=== PATIENT | male | born 1990 | race African-American/Black ===

== ENCOUNTER 2020-10-17 16:45 | Emergency (ER) | payer BC, SELFPAY ==
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
[2020-10-17 17:02] VITALS: BP 147/92; PULSE 83; RESP 18; TEMP 36.7; O2SAT 100
== END 2020-10-17 18:52 | disposition home or self-care (01) ==
PROVIDERS: Emergency Provider Nurse Practitioner Family
DX: H11.32 Conjunctival hemorrhage, left eye (principal); S01.112A Laceration without foreign body of left eyelid and periocular area, initial encounter; Y08.89XA Assault by other specified means, initial encounter; I10 Essential (primary) hypertension
CPT/HCPCS: 70150; 70160; 99203; G0463

== ENCOUNTER 2020-11-18 13:30 | Emergency (ER) | payer BC, SELFPAY ==
[2020-11-18] VITALS (7 sets, daily range): BP systolic 110–144; BP diastolic 77–91; PULSE 100–105; RESP 14–24; TEMP 36.6; O2SAT 85–100
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
--- NOTE | 2020-11-18 13:32 | ECG_ITS ---
Measurements Intervals [place] Rate: 106 P: 53 MS: 153 QRS: -5 QRSD: 94 T: 41 QT: 314 QTc: 418 Interpretive Statements SINUS TACHYCARDIA ATRIAL PREMATURE COMPLEX DELAYED PRECORDIAL R/S TRANSITION ABNORMAL ECG Electronically Signed On 11-18-2020 13:50:36 CDT by Beau Read D.O.
[2020-11-18 13:59] LABS: Basophils Percent Auto 0.3 % (0.2-1.2); Hematocrit 47.7 % (42.0-52.0); Immature Granulocyte Absolute 0.02 K/mm3 (0.00-0.031); Immature Granulocyte Percent A 0.7 % (0-0.5); Lymphocytes Absolute Auto 0.59 K/mm3 (0.9-3.2); Lymphocytes Percent Auto 19.3 % (18.3-44.2); Mean Corpuscular HGB Conc 31.4 g/dl (32-36); Mean Corpuscular Hemoglobin 26.2 pg (26-34); Mean Corpuscular Volume 83.4 fl (80-100); Mean Platelet Volume 10.3 fl (7.4-10.4); Monocytes Absolute Auto 0.6 K/mm3 (0.1-0.6); Neutrophils Absolute Auto 1.9 K/mm3 (1.3-6.7); Neutrophils Percent Auto 60.7 % (45.5-73.1); Platelet Count Result 190 k/mm3 (150-375); Red Blood Count 5.72 M/mm3 (4.6-6.20); Red Cell Distribution Width 13.6 % (11.5-14.5); White Blood Count 3.1 K/mm3 (4.5-10.0)
[2020-11-18 14:10] LABS: Alanine Aminotransferase 28 U/L (4-50); Albumin Level 4.8 g/dL (3.5-5.1); Alkaline Phosphatase 61 U/L (38-126); Anion Gap 11 mmol/L (8-16); Aspartate Amino Transferase 36 U/L (17-59); Bilirubin,Total 0.4 mg/dL (0.2-1.3); Blood Urea Nitrogen 10 mg/dL (9-20); Calcium 9.6 mg/dL (8.4-10.2); Carbon Dioxide 31 mmol/L (22-30); Chloride 90 mmol/L (98-107); D Dimer 0.39 ug/mL (<0.48); Estimated CRCL calculation 94 ml/min; Estimated Glomerular Filt Rate > 60; Glucose 95 mg/dL (65-110); Potassium 3.7 mmol/L (3.4-5.0); Sodium 132 mmol/L (137-145)
--- NOTE | 2020-11-18 16:32 | ED.SOB ---
HPI - SOB/Dyspnea General Chief Complaint: Shortness of Breath/Dyspnea Stated Complaint: COVID+, c/o SOB Time Seen by Provider: 11/18/20 16:27 History of Present Illness HPI Narrative: Cough congestion, ZAVALA, body aches for the past for days. Positive COVID test today. Taking OTC medications without significant improvement. Related Data Home Medications Medication Instructions Recorded Confirmed lisinopril-hydrochlorothiazide tablet 10/17/20 Allergies Allergy/AdvReac Type Severity Reaction Status Date / Time No Known Allergies Allergy Verified 10/17/20 17:06 Review of Systems Review of Systems: All systems reviewed & are unremarkable except as noted in HPI and below Constitutional: Constitutional: Denies fever(s) Eyes: Eyes: Reports no additional eye complaints ENT: Denies sore throat Cardiovascular: Cardiovascular: Reports no additional cardiovascular complaints Respiratory: Respiratory: Reports chest congestion, Reports cough and Reports dyspnea Gastrointestinal: Gastrointestinal: Denies abdominal pain Neurologic: Reports system reviewed and no additional complaints, except as documented [facility] Past Medical History Medical History (Updated 11/18/20 @ 16:43 by Bruce Michael MD) HTN (hypertension) Social History Social History Gender identity (if verbalized by the patient): Male Exam Const: General: no acute distress and alert Orientation/consciousness: patient oriented x3 HENMT: Head: normal to inspection Eyes: Conjunctivae: conjunctival abnormality left subconjunctival hemorrhage Neck: Neck: normal visual inspection Resp: Effort & Inspection: normal respiratory effort Auscultation: clear to auscultation bilaterally Cardio: Rate: tachycardic Rhythm: regular rhythm GI: Inspection: non-distended GI Palp: Yes Soft to palpation and No Tenderness to palpation present (GI) Skin: General skin exam: normal color Neuro: General: patient oriented x3, moves all extremities, no focal motor deficits and CN's II-XI intact bilaterally Extrem: General: normal to inspection and no edema Course Vital Signs Vital signs: Vital Signs Temperature 36.6 C 11/18/20 13:59 Pulse Rate 105 H 11/18/20 13:59 Respiratory Rate 18 11/18/20 13:59 Blood Pressure 119/82 11/18/20 13:59 Pulse Oximetry 100 11/18/20 13:59 Temperature 36.6 C 11/18/20 13:59 Pulse Rate 105 H 08/13/21 13:59 Respiratory Rate 18 11/18/20 13:59 Blood Pressure 119/82 11/18/20 13:59 Pulse Oximetry 100 11/18/20 13:59 MDM - SOB/Dyspnea Differential Diagnosis Differential diagnosis: Likely other Medical Records Attestation: I reviewed the patient's medical records. Lab Data Attestation: I reviewed the patient's lab results. Result diagrams: 11/18/20 13:43 11/18/20 13:43 Labs: Lab Results 11/18/20 11/18/20 11/18/20 Range/Units 13:43 13:43 13:43 WBC 3.1 L (4.5-10.0) K/mm3 RBC 5.72 (4.6-6.20) M/mm3 Hgb 15.0 (14.0-18.0) g/dL Hct 47.7 (42.0-52.0) % MCV 83.4 (80-100) fl MCH 26.2 (26-34) pg MCHC 31.4 L (32-36) g/dl RDW 13.6 (11.5-14.5) % Plt Count 190 (150-375) k/mm3 MPV 10.3 (7.4-10.4) fl Immature Gran % (Auto) 0.7 H (0-0.5) % Neut % (Auto) 60.7 (45.5-73.1) % Lymph % (Auto) 19.3 (18.3-44.2) % [place] % (Auto) 19.0 H (2.6-8.5) % Eos % (Auto) 0.0 (0-4.4) % Baso % (Auto) 0.3 (0.2-1.2) % Lymph # (Auto) 0.59 L (0.9-3.2) K/mm3 [place] # (Auto) 0.6 (0.1-0.6) K/mm3 Eos # (Auto) 0.0 (0-0.3) K/mm3 Baso # (Auto) 0.0 (0.0-0.1) K/mm3 Abs Immat Gran (auto) 0.02 (0.00-0.031) K/mm3 Absolute Neuts (auto) 1.9 (1.3-6.7) K/mm3 Absolute Nucleated RBC 0.0 (0.0-0.012) K/mm3 Nucleated RBC % 0.0 (0.0-0.2) % D-Dimer 0.39 (<0.48) ug/mL Sodium 132 L (137-145) mmol/L Potassium 3.7 (3.4-5.0) mmol/L Chloride 90 L (98-107) mmol/L Carbon Dioxide
[2020-11-18] MEDS: predniSONE 20 MG TABLET 60 MG PO (17:10)
[2020-11-18] MEDS: KETOROLAC (*BKC) 60 MG/2 ML VIAL IM (17:10)
== END 2020-11-18 18:11 | disposition home or self-care (01) ==
LOC: ANHED 16:55
PROVIDERS: Emergency Medicine; Emergency Provider Emergency Medicine
DX: U07.1 COVID-19 (principal); I10 Essential (primary) hypertension
CPT/HCPCS: 36415; 71045; 80053; 85025; 85380; 93005; 96372; 99284; J1885; J7512